=== PATIENT | male | born 1985 | race Caucasian/White ===

== ENCOUNTER 2017-12-31 13:31 | Emergency (ER) | payer SELFPAY ==
[2017-12-31 14:56] VITALS: BP 136/81; PULSE 80; RESP 18; TEMP 98.9; O2SAT 99
--- NOTE | 2017-12-31 18:19 | PD ---
HPI Chief Complaint: Abdominal Pain Time Seen by Provider: 14:56 Travel History International Travel<30 days: No Contact w/Intl Traveler<30days: No Traveled to known affect area: No History of Present Illness HPI Patient is a 32-year-old male presenting to the emergency department with abdominal pain, started 2 days ago. Hx of Crohn's disease. Pt does not want narcotics. Patient reports nausea, vomiting, blood in his stools. He states his been off of his medications for a month. Was on Pent[place]. Symptom onset was sudden, symptom severity is moderate to severe. There are no alleviating factors. He reports his pain is an 8 out of 10. PFSH Past Medical History Gastrointestinal Disorders: Yes (Crohn's disease) Social History Alcohol Use: No Tobacco Use: No Allergies-Medications (Allergen,Severity, Reaction): Coded Allergies: No Known Allergies (Unverified , 12/31/17) Review of Systems Except as stated in HPI: all other systems reviewed are Neg Gastrointestinal: Positive: Nausea, Vomiting, Abdominal Pain, Changes in Bowel Habits Physical Exam Narrative GENERAL: Well-developed, well-nourished, alert male. Presenting in no acute distress. SKIN: Warm and dry. HEAD: Normocephalic. EYES: No scleral icterus. No injection or drainage. NECK: Supple, trachea midline. No JVD or lymphadenopathy. CARDIOVASCULAR: Regular rate RESPIRATORY: No accessory muscle use. Data Data Last Documented VS Vital Signs Date Time Temp Pulse Resp B/P (MAP) Pulse Ox O2 Delivery O2 Flow Rate FiO2 12/31/17 14:56 98.9 80 18 136/81 (99) 99 Orders Orders Complete Blood Count With Diff (12/31/17 14:58) Comprehensive Metabolic Panel (12/31/17 14:58) Lipase (12/31/17 14:58) Prothrombin Time / Inr (Pt) (12/31/17 14:58) Act Partial Throm Time (Ptt) (12/31/17 14:58) MDM Medical Decision Making Medical Screen Exam Complete: Yes Emergency Medical Condition: Yes Interpretation(s) Vital Signs Date Time Temp Pulse Resp B/P (MAP) Pulse Ox O2 Delivery O2 Flow Rate FiO2 12/31/17 14:56 98.9 80 18 136/81 (99) 99 Differential Diagnosis Crohn's disease versus diverticulitis versus abscess versus metabolic abnormality versus other Narrative Course Patient is a 32-year-old male presenting to emergency department for evaluation of abdominal pain. Patient's vital signs are stable, he is awaiting bed placement. Labs and imaging ordered and pending. Patient was called be placed in a bed, is no longer found in the emergency department. Patient left AGAINST MEDICAL ADVICE Diagnosis Primary Impression: Left against medical advice Beatrice Elizabeth Dec 31, 2017 18:19
== END 2018-01-01 01:18 | disposition left against medical advice (07) ==
LOC: NED 13:31
DX: R10.9 Unspecified abdominal pain (principal); K92.1 Melena; R11.2 Nausea with vomiting, unspecified; K50.911 Crohn's disease, unspecified, with rectal bleeding; Z53.20 Procedure and treatment not carried out because of patient's decision for unspecified reasons
CPT/HCPCS: 99281

== ENCOUNTER 2018-03-05 22:57 | Observation (INO) | payer SELFPAY ==
[~2018-03-05] VITALS: Ht 185.4 cm; Wt 75.0 kg
[2018-03-05 23:06] VITALS: BP 154/88; PULSE 115; RESP 18; TEMP 98.4; O2SAT 100
[2018-03-05] MEDS ORDERED: SODIUM CHLOR 0.9% 1000 ML INJ 1,000 ML IV ONE (23:15)
[2018-03-05] MEDS ORDERED: CLON.5 PO (23:16)
[2018-03-05] MEDS ORDERED: PAXI10TA8 PO (23:16)
--- NOTE | 2018-03-05 23:17 | PD ---
HPI Chief Complaint: Suicide Ideation/Attempt Time Seen by Provider: 23:15 Travel History International Travel<30 days: No Contact w/Intl Traveler<30days: No Traveled to known affect area: No History of Present Illness HPI 33-year-old male presents to the emergency department from local detox program/ sober house where he was identified to have intentionally ingested bleach as a suicide attempt. Patient states today for the first time reportedly used crack cocaine around 2 PM. Patient has been depressed and isolated. Patient was moved here from [place] to participate in the detox program. Patient states he has not been participating as he is too depressed. Patient was on antidepressant medications when he lived in [place] before moving to the detox program. 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 Patient had no exacerbation of his Crohn's disease. Patient has chronic diarrhea but denies any mucoid or bloody stools. No nausea or vomiting except for after drinking 2 drinks of bleach she did vomit one time. No shortness of breath or chest pain. Patient states he still feels like he does not want to be here and is depressed. Patient is here voluntarily wanting to get psychiatric help. Patient is not a Sparks act. Patient denies other ingestants. PFSH Past Medical History Narrative Medical Depression, Crohn's disease, substance use; nursing notes reviewed Gastrointestinal Disorders: Yes (Crohn's disease) Tetanus Vaccination: Unknown Influenza Vaccination: No Past Surgical History Surgical History: No Previous Surgery Social History Alcohol Use: No Tobacco Use: Yes Substance Use: No Allergies-Medications (Allergen,Severity, Reaction): Coded Allergies: No Known Allergies (Unverified , 03/05/18) Reported Meds & Prescriptions Reported Meds & Active Scripts Active Reported Klonopin (Clonazepam) 0.5 Mg Tab Unknown Dose PO TID Paxil (Paroxetine HCl) 10 Mg Tab Unknown Dose PO DAILY Review of Systems Except as stated in HPI: all other systems reviewed are Neg General / Constitutional: No: Fever, Chills HENT: No: Congestion Cardiovascular: No: Chest Pain or Discomfort Respiratory: No: Shortness of Breath Gastrointestinal: Positive: Vomiting (x1), No: Nausea, Abdominal Pain, Hematemesis, Hematochezia Genitourinary: No: Dysuria, Flank Pain Musculoskeletal: No: Myalgias, Arthralgias Skin: No Rash Neurologic: No: Weakness, Dizziness, Syncope, Seizures Psychiatric: Positive: Anxiety, Depression, Suicidal Ideations Endocrine: No: Heat Intolerance, Cold Intolerance Hematologic/Lymphatic: No: Easy Bruising Physical Exam Narrative GENERAL: Well-developed well-nourished male no acute distress no respiratory distress; GCS 15; no stridor no hoarseness SKIN: Warm and dry. HEAD: Atraumatic. Normocephalic. EYES: Pupils equal and round. No scleral icterus. No injection or drainage. ENT: No nasal bleeding or discharge. Mucous membranes pink and moist. Mucous membranes moist no ulcerations no edema no angioedema airways patent NECK: Trachea midline. No JVD. CARDIOVASCULAR: Regular rate and rhythm. RESPIRATORY: No accessory muscle use. Clear to auscultation. Breath sounds equal bilaterally. GASTROINTESTINAL: Abdomen soft, non-tender, nondistended. Hepatic and splenic margins not palpable. MUSCULOSKELETAL: Extremities without clubbing, cyanosis, or edema. No obvious deformities. NEUROLOGICAL: Awake and alert. No obvious cranial nerve deficits. Motor grossly within normal limits. Five out of 5 muscle strength in the arms and legs. Normal speech. PSYCHIATRIC: Appropriate mood and affect; insight and judgment normal. Data Data Last Documented VS Vital Signs Date Time Temp Pulse Resp B/P (MAP) Pulse Ox O2 Delivery O2 Flow Rate FiO2 03/06/18 03:00 83 18 121/68 (85) 99 Room Air 03/05/18 23:06 98.4 Orders Orders Complete Blood Count With Diff (03/05/18 23:15) Comprehensive Metabolic Panel (03/05/18 23:15) Thyroid Stimulating Hormone (03/05/18 23:15) Urinalysis - C+S If Indicated (03/05/18 23:15) Electrocardiogram (03/05/18 23:15) Oximetry (03/05/18 23:15) Iv Access Insert/Monitor (03/05/18 23:15) Ecg Monitoring (03/05/18 23:15) Psych Screen (03/05/18 23:15) Drug Screen, Random Urine (03/05/18 23:15) Alcohol (Ethanol) (03/05/18 23:15) Salicylates (Aspirin) (03/05/18 23:15) Tylenol (Acetaminophen) (03/05/18 23:15) Sodium Chlor 0.9% 1000 Ml Inj (Ns 1000 M (03/05/18 23:15) Magnesium (Mg) (03/05/18 23:15) Chest, Single Ap (03/05/18 ) Call Poison Control (03/05/18 23:15) Sodium Chlorid 0.9% 500 Ml Inj (Ns 500 M (03/06/18 02:00) Blood Culture (03/06/18 01:47) Lactic Acid (03/06/18 01:47) Ketorolac Inj (Toradol Inj) (03/06/18 03:00) Admit Order (Ed Use Only) (03/06/18 ) [place] [employer] Guide / Telemetry [email or web address].[id number] (03/06/18 05:06) Diet Heart Healthy (03/06/18 Breakfast) Activity Oob With Assistance (03/06/18 05:06) Notify Dr: Other (03/06/18 05:06) Labs Laboratory Tests Test 03/05/18 23:20 03/06/18 02:55 03/06/18 03:00 White Blood Count 20.2 TH/MM3 Red Blood Count 4.75 MIL/MM3 Hemoglobin 14.8 GM/DL Hematocrit 43.6 % Mean Corpuscular Volume 91.7 FL Mean Corpuscular Hemoglobin 31.2 PG Mean Corpuscular Hemoglobin Concent 34.0 % Red Cell Distribution Width 12.5 % Platelet Count 213 TH/MM3 Mean Platelet Volume 7.5 FL Neutrophils (%) (Auto) 86.5 % Lymphocytes (%) (Auto) 5.6 % Monocytes (%) (Auto) 7.7 % Eosinophils (%) (Auto) 0.1 % Basophils (%) (Auto) 0.1 % Neutrophils # (Auto) 17.5 TH/MM3 Lymphocytes # (Auto) 1.1 TH/MM3 Monocytes # (Auto) 1.5 TH/MM3 Eosinophils # (Auto) 0.0 TH/MM3 Basophils # (Auto) 0.0 TH/MM3 CBC Comment DIFF FINAL Differential Comment Blood Urea Nitrogen 16 MG/DL Creatinine 1.28 MG/DL Random Glucose 117 MG/DL Total Protein 7.7 GM/DL Albumin 4.7 GM/DL Calcium Level 9.5 MG/DL Magnesium Level 2.0 MG/DL Alkaline Phosphatase 80 U/L Aspartate Amino Transf (AST/SGOT) 182 U/L Alanine Aminotransferase (ALT/SGPT) 73 U/L Total Bilirubin 0.7 MG/DL Sodium Level 144 MEQ/L Potassium Level 4.5 MEQ/L Chloride Level 105 MEQ/L Carbon Dioxide Level 28.3 MEQ/L Anion Gap 11 MEQ/L Estimat Glomerular Filtration Rate 64 ML/MIN Thyroid Stimulating Hormone 3rd Gen 1.790 uIU/ML Salicylates Level 2.2 MG/DL Acetaminophen Level LESS THAN 2.0 MCG/ML Ethyl Alcohol Level LESS THAN 3 MG/DL Urine Color YELLOW Urine Turbidity CLEAR Urine pH 5.5 Urine Specific [place] 1.015 Urine Protein TRACE mg/dL Urine Glucose (UA) NEG mg/dL Urine Ketones NEG mg/dL Urine Occult Blood SMALL Urine Nitrite NEG Urine Bilirubin NEG Urine Urobilinogen 2.0 MG/DL Urine Leukocyte Esterase NEG Urine WBC LESS THAN 1 /hpf Urine Squamous Epithelial Cells <1 /hpf Urine Hyaline Casts 11 /lpf Urine Granular Casts 11 /lpf Urine Mucus FEW /lpf Microscopic Urinalysis Comment CULT NOT INDICATED Urine Opiates Screen NEG Urine Barbiturates Screen NEG Urine Amphetamines Screen NEG Urine Benzodiazepines Screen NEG Urine Cocaine Screen POS Urine Cannabinoids Screen NEG Lactic Acid Level 0.8 mmol/L MDM Medical Decision Making Medical Screen Exam Complete: Yes Emergency Medical Condition: Yes Medical Record Reviewed: Yes Interpretation(s) EKG normal sinus rhythm rate 67 left axis deviation no acute ST elevation or injury pattern change nonspecific ST-T changes some flattening noted V3 through V6 Last Impressions Chest X-Ray 03/05/18 0000 Signed Impressions: CONCLUSION: No acute cardiopulmonary process. CBC & BMP Diagram 03/05/18 23:20 Total Protein 7.7, Albumin 4.7, Calcium Level 9.5, Magnesium Level 2.0, Alkaline Phosphatase 80, Aspartate Amino Transf (AST/SGOT) 182 H, Alanine Aminotransferase (ALT/SGPT) 73, Total Bilirubin 0.7 Vital Signs Date Time Temp Pulse Resp B/P (MAP) Pulse Ox O2 Delivery O2 Flow Rate FiO2 03/06/18 03:00 83 18 121/68 (85) 99 Room Air 03/05/18 23:06 98.4 115 18 154/88 (110) 100 Urine drug screen: Positive for cocaine Serum alcohol less than 3, not elevated Serum acetaminophen/salicylate levels are not elevated Differential Diagnosis Depression, suicidal ideation, bleach ingestion, polysubstance ingestion Narrative Course Patient placed on monitor IV access obtained specimens collected and sent for resulting chest x-ray ordered EKG ordered patient given liter of normal saline call placed to poison At 3:15 AM patient has refused CT abdomen and pelvis; based on available physical exam and lab values no clear source for leukocytosis of 20,000 although may be related to stress demargination and dehydration. Patient at this time will be admitted as observation to the medicine service for repeat white cell count and lab values and then will be medically cleared for psych admission for depression and suicidal behavior. Psych screening can be performed at this time. It is 5 AM patient is unable to be medically cleared due to leukocytosis with tachycardia meets SIRS criterion no obvious source of infection most likely reflects tachycardia for cocaine use and possible stress demargination and dehydration precipitating leukocytosis. Patient again interviewed and remains depressed and again remains suicidal. Patient does present voluntarily but will make patient Sparks act as suicidal ideation with recent depression reports he is lost his family his job and purpose. Diagnosis Primary Impression: Depression Additional Impressions: Suicidal ideation Leukocytosis History of Crohn's disease Cocaine abuse Patricia Nunn MD March 05, 2018 23:16
[2018-03-05 23:42] LABS: AUTOMATED NEUTROPHIL # 17.5 TH/MM3 (1.8-7.7); BASOPHIL % 0.1 % (0.0-2.0); EOSINOPHIL % 0.1 % (0.0-4.0); HEMATOCRIT 43.6 % (39.0-51.0); HEMOGLOBIN 14.8 GM/DL (13.0-17.0); LYMPH % 5.6 % (9.0-44.0); LYMPHOCYTE # 1.1 TH/MM3 (1.0-4.8); MEAN CELL VOLUME 91.7 FL (80.0-100.0); MEAN CORPUSCULAR HEMOGLOBIN 31.2 PG (27.0-34.0); MEAN PLATELET VOLUME 7.5 FL (7.0-11.0); MONO % 7.7 % (0.0-8.0); MONOCYTE # 1.5 TH/MM3 (0-0.9); NEUT % 86.5 % (16.0-70.0); PLATELET COUNT 213 TH/MM3 (150-450); RED BLOOD COUNT 4.75 MIL/MM3 (4.50-5.90); RED CELL DISTRIBUTION WIDTH 12.5 % (11.6-17.2); WHITE BLOOD COUNT 20.2 TH/MM3 (4.0-11.0)
[2018-03-06] VITALS (11 sets, daily range): BP systolic 107–121; BP diastolic 55–68; PULSE 72–94; RESP 16–20; TEMP 97.2; O2SAT 98–99
--- NOTE | 2018-03-06 00:06 | RADRPT ---
EXAM DATE: 03/06/2018 12:00 AM EDT AGE/SEX: 33 years / Male INDICATIONS: Vomiting. CLINICAL DATA: This is the patient's initial encounter. Patient reports that signs and symptoms have been present for 1 day and indicates a pain score of 1/10. MEDICAL/SURGICAL HISTORY: Crohn's disease. None. COMPARISON: No prior [facility] exams available for comparison. FINDINGS: A single AP view of the chest demonstrates the lungs to be symmetrically aerated without evidence of soft tissue mass, infiltrate or effusion. There is a suspected calcified granuloma in the right upper lung. The cardiomediastinal contours are unremarkable. Osseous structures are intact. CONCLUSION: No acute cardiopulmonary process. Electronically signed by: Gerard Larson MD 03/06/2018 12:04 AM EDT
[2018-03-06 00:09] LABS: ALBUMIN 4.7 GM/DL (3.4-5.0); AST (GOT) 182 U/L (15-37); BICARBONATE 28.3 MEQ/L (21.0-32.0); BLOOD UREA NITROGEN 16 MG/DL (7-18); CALCIUM 9.5 MG/DL (8.5-10.1); CHLORIDE 105 MEQ/L (98-107); CREATININE 1.28 MG/DL (0.60-1.30); GLOMERULAR FILTRATION RATE 64 ML/MIN (>89); GLUCOSE,RANDOM 117 MG/DL (74-106); SODIUM (NA) 144 MEQ/L (136-145)
[2018-03-06 00:17] LABS: ALKALINE PHOSPHATASE 80 U/L (45-117); ALT (GPT) 73 U/L (12-78); TOTAL BILIRUBIN ADULT 0.7 MG/DL (0.2-1.0); TOTAL PROTEIN 7.7 GM/DL (6.4-8.2)
[2018-03-06 00:19] LABS: ACETAMINOPHEN LESS THAN 2.0 MCG/ML (10.0-30.0)
[2018-03-06] MEDS ORDERED: SODIUM CHLORID 0.9% 500 ML INJ 500 ML IV ONE (02:00)
[2018-03-06] MEDS ORDERED: KETOROLAC TROMETHAMINE 30 MG/ML (IVP) VIAL IV PUSH ONE (03:00)
[2018-03-06 03:22] LABS: BILIRUBIN, URINE NEG (NEG); BLOOD, URINE SMALL (NEG); GLUCOSE,URINE NEG (NEG); HYALINE CAST, URINE 11 /lpf (RARE); KETONE, URINE NEG (NEG); MUCUS URINE FEW /lpf (OCC); NITRITE,URINE NEG (NEG); PH, URINE 5.5 (5.0-8.5); SQUAMOUS EPITHELIAL CELL URINE <1 /hpf (0-5); URINE COLOR YELLOW (YELLW/STRAW); URINE LEUKOCYTE ESTERASE NEG (NEG)
[2018-03-06] MEDS ORDERED: BISACODYL 10 MG SUPP RECTAL PRN (05:30)
[2018-03-06] MEDS ORDERED: MAGNESIUM HYDROXIDE SUSP 30 ML CUP PO PRN (05:30)
[2018-03-06] MEDS ORDERED: ACETAMINOPHEN 325 MG TAB PO PRN (05:30)
[2018-03-06] MEDS ORDERED: SODIUM CHLORIDE 0.9% FLUSH 10 ML FLUSH IV FLUSH PRN (05:30)
[2018-03-06] MEDS ORDERED: SENNOSIDES 8.6 MG TAB PO PRN (05:30)
[2018-03-06] MEDS ORDERED: LACTULOSE SYRUP 20 GM/30 ML CUP PO PRN (05:30)
[2018-03-06] MEDS ORDERED: NALOXONE HCL 0.4 MG/ML AMP IV PUSH PRN (05:30)
[2018-03-06 07:41] LABS: AUTOMATED NEUTROPHIL # 7.8 TH/MM3 (1.8-7.7); BASOPHIL # 0.1 TH/MM3 (0-0.2); BASOPHIL % 0.5 % (0.0-2.0); EOSINOPHIL # 0.2 TH/MM3 (0-0.4); EOSINOPHIL % 1.7 % (0.0-4.0); HEMATOCRIT 39.5 % (39.0-51.0); HEMOGLOBIN 13.4 GM/DL (13.0-17.0); LYMPH % 20.3 % (9.0-44.0); LYMPHOCYTE # 2.3 TH/MM3 (1.0-4.8); MEAN CELL VOLUME 92.4 FL (80.0-100.0); MEAN CORPUSCULAR HEMOGLOBIN 31.3 PG (27.0-34.0); MEAN CORPUSCULAR HGB CONC 33.9 % (32.0-36.0); MEAN PLATELET VOLUME 7.4 FL (7.0-11.0); MONO % 8.9 % (0.0-8.0); NEUT % 68.6 % (16.0-70.0); PLATELET COUNT 158 TH/MM3 (150-450); RED BLOOD COUNT 4.27 MIL/MM3 (4.50-5.90); RED CELL DISTRIBUTION WIDTH 12.8 % (11.6-17.2); WHITE BLOOD COUNT 11.3 TH/MM3 (4.0-11.0)
[2018-03-06] MEDS ORDERED: SODIUM CHLORIDE 0.9% FLUSH 10 ML FLUSH IV FLUSH SCH (09:00)
[2018-03-06] MEDS ORDERED: SODIUM CHLOR 0.9% 1000 ML INJ 1,000 ML IV SCH (09:15)
--- NOTE | 2018-03-06 09:15 | HHI.HP ---
HPI Service [facility] Primary Care Physician No Primary Care Physician Admission Diagnosis Leukocytosis; sirs; suicidal ideation/depression Diagnoses: Chief Complaint: suicidal attempt Travel History International Travel<30 Days: No Contact w/Intl Traveler <30 Da: No Traveled to Known Affected Are: No History of Present Illness 33-year-old male presents to the emergency department from local detox program/ sober house where he was identified to have intentionally ingested bleach as a suicide attempt. Patient states today for the first time reportedly used crack cocaine around 2 PM. Patient has been depressed and isolated. Patient was moved here from [place] to participate in the detox program. Patient states he has not been participating as he is too depressed. Patient was on antidepressant medications when he lived in [place] before moving to the detox program. 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 Patient had no exacerbation of his Crohn's disease. Patient has chronic diarrhea but denies any mucoid or bloody stools. No nausea or vomiting except for after drinking 2 drinks of bleach she did vomit one time. No shortness of breath or chest pain. Patient states he still feels like he does not want to be here and is depressed. Patient is here voluntarily wanting to get psychiatric help. Patient is not a Sparks act. Patient denies other ingestants. Review of Systems Except as stated in HPI: all other systems reviewed are Neg Past Family Social History Past Medical History Depression, Crohn's disease, substance use; nursing notes reviewed Past Surgical History No Previous Surgery Reported Medications Reported Meds & Active Scripts Active Reported Klonopin (Clonazepam) 0.5 Mg Tab Unknown Dose PO TID Paxil (Paroxetine HCl) 10 Mg Tab Unknown Dose PO DAILY Allergies: Coded Allergies: No Known Allergies (Unverified , 03/05/18) Family History Healthy family Social History Alcohol Use: No Tobacco Use: Yes Substance Use: Positive screen for cocaine Physical Exam Vital Signs Vital Signs Date Time Temp Pulse Resp B/P (MAP) Pulse Ox O2 Delivery O2 Flow Rate FiO2 03/06/18 08:10 97.2 81 16 110/67 (81) 99 03/06/18 07:30 72 16 115/64 (81) 98 Room Air 03/06/18 07:00 76 17 115/64 (81) 98 Room Air 03/06/18 06:00 82 18 107/58 (74) 98 Room Air 03/06/18 05:00 78 19 112/56 (74) 99 Room Air 03/06/18 04:00 78 18 110/57 (74) 99 Room Air 03/06/18 03:00 83 18 121/68 (85) 99 Room Air 03/06/18 02:00 82 20 111/57 (75) 99 Room Air 03/06/18 01:00 86 18 110/55 (73) 99 Room Air 03/06/18 00:00 94 19 118/66 (83) 99 Room Air 03/05/18 23:06 98.4 115 18 154/88 (110) 100 Physical Exam GENERAL: This is a well-nourished, well-developed patient, in no apparent distress. SKIN: No rashes, ecchymoses or lesions. Cool and dry. HEAD: Atraumatic. Normocephalic. No temporal or scalp tenderness. EYES: Pupils equal round and reactive. Extraocular motions intact. No scleral icterus. No injection or drainage. ENT: Nose without bleeding, purulent drainage or septal hematoma. Throat without erythema, tonsillar hypertrophy or exudate. Uvula midline. Airway patent. NECK: Trachea midline. No JVD or lymphadenopathy. Supple, nontender, no meningeal signs. CARDIOVASCULAR: Regular rate and rhythm without murmurs, gallops, or rubs. RESPIRATORY: Clear to auscultation. Breath sounds equal bilaterally. No wheezes , rales, or rhonchi. GASTROINTESTINAL: Abdomen soft, non-tender, nondistended. No hepato-splenomegaly , or palpable masses. No guarding. MUSCULOSKELETAL: Extremities without clubbing, cyanosis, or edema. No joint tenderness, effusion, or edema noted. No calf tenderness. Negative Homans sign bilaterally. NEUROLOGICAL: Awake and alert. Cranial nerves II through XII intact. Motor and sensory grossly within normal limits. Five out of 5 muscle strength in all muscle groups. Normal speech. Laboratory Laboratory Tests Test 03/05/18 23:20 03/06/18 02:55 03/06/18 03:00 03/06/18 07:26 White Blood Count 20.2 11.3 Red Blood Count 4.75 4.27 Hemoglobin 14.8 13.4 Hematocrit 43.6 39.5 Mean Corpuscular Volume 91.7 92.4 Mean Corpuscular Hemoglobin 31.2 31.3 Mean Corpuscular Hemoglobin Concent 34.0 33.9 Red Cell Distribution Width 12.5 12.8 Platelet Count 213 158 Mean Platelet Volume 7.5 7.4 Neutrophils (%) (Auto) 86.5 68.6 Lymphocytes (%) (Auto) 5.6 20.3 Monocytes (%) (Auto) 7.7 8.9 Eosinophils (%) (Auto) 0.1 1.7 Basophils (%) (Auto) 0.1 0.5 Neutrophils # (Auto) 17.5 7.8 Lymphocytes # (Auto) 1.1 2.3 Monocytes # (Auto) 1.5 1.0 Eosinophils # (Auto) 0.0 0.2 Basophils # (Auto) 0.0 0.1 CBC Comment DIFF FINAL DIFF FINAL Differential Comment Blood Urea Nitrogen 16 Creatinine 1.28 Random Glucose 117 Total Protein 7.7 Albumin 4.7 Calcium Level 9.5 Magnesium Level 2.0 Alkaline Phosphatase 80 Aspartate Amino Transf (AST/SGOT) 182 Alanine Aminotransferase (ALT/SGPT) 73 Total Bilirubin 0.7 Sodium Level 144 Potassium Level 4.5 Chloride Level 105 Carbon Dioxide Level 28.3 Anion Gap 11 Estimat Glomerular Filtration Rate 64 Thyroid Stimulating Hormone 3rd Gen 1.790 Salicylates Level 2.2 Acetaminophen Level LESS THAN 2.0 Ethyl Alcohol Level LESS THAN 3 Urine Color YELLOW Urine Turbidity CLEAR Urine pH 5.5 Urine Specific [place] 1.015 Urine Protein TRACE Urine Glucose (UA) NEG Urine Ketones NEG Urine Occult Blood SMALL Urine Nitrite NEG Urine Bilirubin NEG Urine Urobilinogen 2.0 Urine Leukocyte Esterase NEG Urine WBC LESS THAN 1 Urine Squamous Epithelial Cells <1 Urine Hyaline Casts 11 Urine Granular Casts 11 Urine Mucus FEW Microscopic Urinalysis Comment CULT NOT INDICATED Urine Opiates Screen NEG Urine Barbiturates Screen NEG Urine Amphetamines Screen NEG Urine Benzodiazepines Screen NEG Urine Cocaine Screen POS Urine Cannabinoids Screen NEG Lactic Acid Level 0.8 Date/Time Source Procedure Growth Status 03/06/18 03:05 Blood Peripheral Aerobic Blood Culture Pending Received 03/06/18 03:05 Blood Peripheral Anaerobic Blood Culture Pending Received Result Diagram: 03/06/18 0726 03/05/18 2320 Imaging Last Impressions Chest X-Ray 03/05/18 0000 Signed Impressions: CONCLUSION: No acute cardiopulmonary process. Caprini VTE Risk Assessment Caprini VTE Risk Assessment: No/Low Risk (score <= 1) Caprini Risk Assessment Model Point Value = 1 Point Value = 2 Point Value = 3 Point Value = 5 Age 41-60 Minor surgery BMI > 25 kg/m2 Swollen legs Varicose veins or History of unexplained or recurrent spontaneous Oral contraceptives or hormone replacement Sepsis (< 1 month) Serious lung disease, including pneumonia (< 1 month) Abnormal pulmonary function Acute myocardial infarction Congestive heart failure (< 1 month) History of inflammatory bowel disease Medical patient at bed rest Age 61-74 Arthroscopic surgery Major open surgery (> 45 min) Laparoscopic surgery (> 45 min) Malignancy Confined to bed (> 72 hours) Immobilizing plaster cast Central venous access Age >= 75 History of VTE Family history of VTE Factor V Leiden Prothrombin [id number] Lupus anticoagulant Anticardiolipin antibodies Elevated serum homocysteine Heparin-induced thrombocytopenia Other congenital or acquired thrombophilia Stroke (< 1 month) Elective arthroplasty Hip, pelvis, or leg fracture Acute spinal cord injury (< 1 month) Prophylaxis Regimen Total Risk Factor Score Risk Level Prophylaxis Regimen 0-1 Low Early ambulation 2 Moderate Order ONE of the following: *Sequential Compression Device (SCD) *Heparin 5000 units SQ BID 3-4 Higher Order ONE of the following medications: *Heparin 5000 units SQ TID *Enoxaparin/Lovenox 40 mg SQ daily (WT < 150 kg, CrCl > 30 mL/min) *Enoxaparin/Lovenox 30 mg SQ daily (WT < 150 kg, CrCl > 10-29 mL/min) *Enoxaparin/Lovenox 30 mg SQ BID (WT < 150 kg, CrCl > 30 mL/min) AND/OR *Sequential Compression Device (SCD) 5 or more Highest Order ONE of the following medications: *Heparin 5000 units SQ TID (Preferred with Epidurals) *Enoxaparin/Lovenox 40 mg SQ daily (WT < 150 kg, CrCl > 30 mL/min) *Enoxaparin/Lovenox 30 mg SQ daily (WT < 150 kg, CrCl > 10-29 mL/min) *Enoxaparin/Lovenox 30 mg SQ BID (WT < 150 kg, CrCl > 30 mL/min) AND *Sequential Compression Device (SCD) Assessment and Plan Assessment and Plan Depression Suicidal ideation and attempt with bleach ingestion Leukocytosis History of Crohn's disease, not in exacerbation at this time. Stable. Cocaine abuse leukocytosis with tachycardia meets SIRS criteria no obvious source of infection most likely reflects tachycardia for cocaine use and possible stress and dehydration precipitating leukocytosis. However repeat labs WBC improved significantly. Patient again interviewed and remains depressed and again remains suicidal. Patient does present voluntarily but will make patient Sparks act as suicidal ideation with recent depression reports he is lost his family his job and purpose. EKG normal sinus rhythm rate 67 left axis deviation no acute ST elevation or injury pattern change nonspecific ST-T changes some flattening noted V3 through V6 On IVF Sitter at bedside Psych consulted , meets psych criteria Discharge plan: Cleared medically DC to med psych Cleared medically to DC to med psych Dr Juve hernandez has seen the patient Meds per med reconciliations Activity ad dieter as paevl Diet regular diet as tolerated DC in medically stable condition to med psych , to follow up with PC[facility] and consultants as need. Discussed Condition With pt, nurse Joann Montaño MD March 06, 2018 09:15
--- NOTE | 2018-03-06 11:52 | PD.PSY.CON ---
Provisional Diagnosis Admission Date March 06, 2018 at 05:09 Holden I. Adjustment disorder with depressed mood vs substance-induced mood disorder vs major depressive disorder, recurrent, cocaine and opiates use disorder Holden II. 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 Crohn's disease, intoxication with bleach and cocaine Holden IV. Multiple psychiatric admissions, multiple suicide attempt Holden V. 45 History of Present Illness Service Psychiatry Consult Requested By ER team Reason for Consult Suicidal attempt Primary Care Physician No Primary Care Physician HPI The patient is 33-year-old man, domiciled in a sober house in [facility], he is originally from [place], he is , unemployed, father of 2 kids , with a significant psychiatric history for drug-induced psychosis, depression , anxiety, over 10 hospitalizations, multiple suicidal attempts, he is not a psychotropics, cocaine and opiates use disorder, medical history of Crohn's disease, who presents to the emergency department from local detox program/ sober house where he was identified to have intentionally ingested bleach as a suicide attempt. Patient states yesterday for the first time reportedly used crack cocaine around 2 PM. Patient has been depressed and isolated. Patient was moved here from [place] to participate in the detox program. Patient states he has not been participating as he is too depressed. Patient was on antidepressant medications when he lived in [place] before moving to the detox program. 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 Patient had no exacerbation of his Crohn's disease. Patient has chronic diarrhea but denies any mucoid or bloody stools. No nausea or vomiting except for after drinking 2 drinks of bleach she did vomit one time. No shortness of breath or chest pain. Patient states he still feels like he does not want to be here and is depressed. Patient is here voluntarily wanting to get psychiatric help. Patient is not a Sparks act. Patient was admitted in observation due to leukocytosis with tachycardia meets SIRS criteria no obvious source of infection most likely reflects tachycardia for cocaine use and possible stress and dehydration precipitating leukocytosis. However repeat labs WBC improved significantly. EKG normal sinus rhythm rate 67 left axis deviation no acute ST elevation or injury pattern change nonspecific ST-T changes some flattening noted V3 through V6. Consulted to psychiatry to address depression. EMR reviewed. Case discussed with Dr. Montaño directly. On psychiatric evaluation the patient is calm, cooperative. The patient reports that he has a long history of depression, he has been in a sober house for over 2 months, he has not been taking his medications, and he has been increasingly depressed. Yesterday, after multiple months, relapsed in cocaine and he felt so guilty that he decided to overdose with bleach. Patient reports that being far from his family, unemployed, facing his drug addiction day by day, making quite depressed. Patient reports that he has been feeling very guilty, irritable, with poor tolerance to frustration, hopeless, helpless, with increased sense of rejection, emptiness, persistent suicidal thoughts. The patient reports suicidal ideation, no specific plan at the moment. Is willing to be admitted in psychiatry and restarting his medications. He says that in the past he has being in Seroquel and Klonopin and other medications. Patient is oriented 3, no fluctuation of consciousness, no attention deficit gross cognitive impairment present. He is logical, coherent and relevant. No paranoia, no ideas of reference, no loosening of associations, no delusions are present. He is not agitated or aggressive. He reports that the reason he is in a sober house for treatment of opiate abuse, he has been in early sustained remission for about 2 months now, he used cocaine in the past, has been also sober until yesterday. Review of Systems Constitutional: DENIES: Diaphoretic episodes, Fatigue, Fever, Weight gain, Weight loss, Chills, Dizziness, Change in appetite, Night Sweats Endocrine: DENIES: Heat/cold intolerance, Polydipsia, Polyuria, Polyphagia Eyes: DENIES: Blurred vision, Diplopia, Eye inflammation, Eye pain, Vision loss , Photosensitivity, Double Vision Ears, nose, mouth, throat: DENIES: Tinnitus, Hearing loss, Vertigo, Nasal discharge, Oral lesions, Throat pain, Hoarseness, Ear Pain, Running Nose, Epistaxis, Sinus Pain, Toothache, Odynophagia Respiratory: DENIES: Apneas, Cough, Snoring, Wheezing, Hemoptysis, Sputum production, Shortness of breath Cardiovascular: DENIES: Chest pain, Palpitations, Syncope, Dyspnea on Exertion , PND, Lower Extremity Edema, Orthopnea, Claudication Gastrointestinal: DENIES: Abdominal pain, Black stools, Bloody stools, Constipation, Diarrhea, Nausea, Vomiting, Difficulty Swallowing, Anorexia Genitourinary: DENIES: Sexual dysfunction, Urinary frequency, Urinary incontinence, Urgency, Hematuria, Dysuria, Nocturia, Penile Discharge, Testicular Pain, Testicular Swelling Musculoskeletal: DENIES: Joint pain, Muscle aches, Stiffness, Joint Swelling, Back pain, Neck pain Integumentary: DENIES: Abnormal pigmentation, Nail changes, Pruritus, Rash Hematologic/lymphatic: DENIES: Bruising, Lymphadenopathy Immunologic/allergic: DENIES: Eczema, Urticaria Neurologic: DENIES: Abnormal gait, Headache, Localized weakness, Paresthesias, Seizures, Speech Problems, Tremor, Poor Balance Psychiatric: COMPLAINS OF: Depression, Suicidal Ideation, DENIES: Anxiety, Confusion, Mood changes, Hallucinations, Agitation, Homicidal Ideation, Delusions Past Family Social History Coded Allergies: No Known Allergies (Unverified , 03/05/18) Reported Medications Clonazepam (Klonopin) 0.5 Mg Tab, PO TID, #90 TAB 0 Refills 03/05/18 Paroxetine (Paxil) 10 Mg Tab, PO DAILY, #30 TAB 0 Refills 03/05/18 Current Medications Medications (Trade) Dose Ordered Sig/Nithin Route Start Time Stop Time Status Last Admin (NS Flush) 2 ml UNSCH PRN IV FLUSH 03/06/18 05:30 (NS Flush) 2 ml BID IV FLUSH 03/06/18 09:00 03/06/18 08:56 (Tylenol) 650 mg Q4H PRN PO 03/06/18 05:30 (Narcan Inj) 0.4 mg UNSCH PRN IV PUSH 03/06/18 05:30 (Milk Of Magnesia Liq) 30 ml Q12H PRN PO 03/06/18 05:30 (Senokot) 17.2 mg Q12H PRN PO 03/06/18 05:30 (Dulcolax Supp) 10 mg DAILY PRN RECTAL 03/06/18 05:30 (Lactulose Liq) 30 ml DAILY PRN PO 03/06/18 05:30 Sodium Chloride 1,000 ml @ 125 mls/hr Q8H IV 03/06/18 09:15 Family Psych History No family psychiatric history Social History Patient was born and raised in [place], he lives in [place] with his family, is now participating in treatment for opiates and cocaine abuse in a sober house in the [place], unemployed, father of 2 kids, his highest level of education is college Patient's Strengths (min. 2) Patient is in a structure treatment for drugs Physical Exam Patient has no withdrawal symptoms, no tremors, no psychomotor agitation or retardation, no gait disturbance, no catatonic symptoms Vital Signs Vital Signs Date Time Temp Pulse Resp B/P (MAP) Pulse Ox O2 Delivery O2 Flow Rate FiO2 03/06/18 11:29 85 03/06/18 08:10 97.2 16 110/67 (81) 99 03/06/18 07:30 Room Air Lab Results Test 03/05/18 23:20 03/06/18 02:55 03/06/18 03:00 03/06/18 07:26 White Blood Count 20.2 TH/MM3 11.3 TH/MM3 Red Blood Count 4.75 MIL/MM3 4.27 MIL/MM3 Hemoglobin 14.8 GM/DL 13.4 GM/DL Hematocrit 43.6 % 39.5 % Mean Corpuscular Volume 91.7 FL 92.4 FL Mean Corpuscular Hemoglobin 31.2 PG 31.3 PG Mean Corpuscular Hemoglobin Concent 34.0 % 33.9 % Red Cell Distribution Width 12.5 % 12.8 % Platelet Count 213 TH/MM3 158 TH/MM3 Mean Platelet Volume 7.5 FL 7.4 FL Neutrophils (%) (Auto) 86.5 % 68.6 % Lymphocytes (%) (Auto) 5.6 % 20.3 % Monocytes (%) (Auto) 7.7 % 8.9 % Eosinophils (%) (Auto) 0.1 % 1.7 % Basophils (%) (Auto) 0.1 % 0.5 % Neutrophils # (Auto) 17.5 TH/MM3 7.8 TH/MM3 Lymphocytes # (Auto) 1.1 TH/MM3 2.3 TH/MM3 Monocytes # (Auto) 1.5 TH/MM3 1.0 TH/MM3 Eosinophils # (Auto) 0.0 TH/MM3 0.2 TH/MM3 Basophils # (Auto) 0.0 TH/MM3 0.1 TH/MM3 CBC Comment DIFF FINAL DIFF FINAL Differential Comment Blood Urea Nitrogen 16 MG/DL Creatinine 1.28 MG/DL Random Glucose 117 MG/DL Total Protein 7.7 GM/DL Albumin 4.7 GM/DL Calcium Level 9.5 MG/DL Magnesium Level 2.0 MG/DL Alkaline Phosphatase 80 U/L Aspartate Amino Transf (AST/SGOT) 182 U/L Alanine Aminotransferase (ALT/SGPT) 73 U/L Total Bilirubin 0.7 MG/DL Sodium Level 144 MEQ/L Potassium Level 4.5 MEQ/L Chloride Level 105 MEQ/L Carbon Dioxide Level 28.3 MEQ/L Anion Gap 11 MEQ/L Estimat Glomerular Filtration Rate 64 ML/MIN Thyroid Stimulating Hormone 3rd Gen 1.790 uIU/ML Salicylates Level 2.2 MG/DL Acetaminophen Level LESS THAN 2.0 MCG/ML Ethyl Alcohol Level LESS THAN 3 MG/DL Urine Color YELLOW Urine Turbidity CLEAR Urine pH 5.5 Urine Specific [place] 1.015 Urine Protein TRACE mg/dL Urine Glucose (UA) NEG mg/dL Urine Ketones NEG mg/dL Urine Occult Blood SMALL Urine Nitrite NEG Urine Bilirubin NEG Urine Urobilinogen 2.0 MG/DL Urine Leukocyte Esterase NEG Urine WBC LESS THAN 1 /hpf Urine Squamous Epithelial Cells <1 /hpf Urine Hyaline Casts 11 /lpf Urine Granular Casts 11 /lpf Urine Mucus FEW /lpf Microscopic Urinalysis Comment CULT NOT INDICATED Urine Opiates Screen NEG Urine Barbiturates Screen NEG Urine Amphetamines Screen NEG Urine Benzodiazepines Screen NEG Urine Cocaine Screen POS Urine Cannabinoids Screen NEG Lactic Acid Level 0.8 mmol/L Date/Time Source Procedure Growth Status 03/06/18 03:05 Blood Peripheral Aerobic Blood Culture Pending Received 03/06/18 03:05 Blood Peripheral Anaerobic Blood Culture Pending Received Mental Status Examination Appearance: Appropriate Consciousness: Alert Orientation: x4 Motor Activity: Normal gait Speech: Unremarkable Language: Adequate Fund of Knowledge: Adequate Attention and Concentration: Adequate Memory: Unremarkable Mood: Appropriate, Sad Affect: Appropriate, Irritable, Sad Thought Process & Associations: Intact Thought Content: Appropriate Hallucination Type: None Delusion Type: None Suicidal Ideation: Yes Suicidal Plan: No Suicidal Intention: No Homicidal Ideation: No Homicidal Plan: No Homicidal Intention: No Insight: Poor Judgment: Poor Assessment & Plan Problem List: (1) Adjustment disorder with depressed mood ICD Codes: F43.21 - Adjustment disorder with depressed mood Assessment & Plan: Psychiatric evaluation patient is calm, cooperative, he reports ongoing symptomatology of depression in the last 2 months in the context of separation from his family, not taking his psychotropics, feeling overwhelmed and stressed with his participation in a rehabilitation program in a sober house. The patient reports that he has been feeling increasingly guilty , frustrated, with mood swings, poor tolerance to frustration, irritability, low energy, hopeless, helpless, to the point that he relapsed in cocaine yesterday "to feel better" became quite guilty and then try to commit suicide by taking bleach. This is a patient with an extensive history of psychiatric hospitalizations, suicide attempts, self harming behavior, suicide attempts, substance abuse, has not been in treatment for the last 2 months. At the moment of this evaluation the patient seems to be a high risk of danger to himself, he is actively suicidal, he needs to be admitted in psychiatry for stabilization. Will start Wellbutrin 75 mg bid for depression. Unclear at this point if the etiology of the depression that he presents is related with adjustment due to separation with his family and also recent relapse, cocaine use disorder, a primary mood disorder or conscious simulation could also be part of this picture. By taking psychiatric history also based in my observation clinically significant cluster B traits are present, but more longitudinal observation is needed in order to complete a diagnosis in this aspect. Brief supportive psychotherapy of cycle patient provided. Patient will be transferred to psychiatry once medically appropriate. Assessment & Plan Estimated LOS: Wili Adrian MD March 06, 2018 11:52
[2018-03-06] MEDS ORDERED: buPROPion HCL 75 MG TAB PO SCH (12:00)
--- NOTE | 2018-03-06 12:50 | HHI.DCPOC ---
Discharge Care Plan Goals to Promote Your Health * To prevent worsening of your condition and complications * To maintain your health at the optimal level Directions to Meet Your Goals Take your medications as prescribed Follow your dietary instruction Follow activity as directed Keep your appointments as scheduled Take your immunizations and boosters as scheduled If your symptoms worsen call your PCP, if no PCP go to Urgent Care Center or Emergency Room Smoking is Dangerous to Your Health. Avoid second hand smoke Call the 24-hour hour crisis hotline for domestic abuse at Joann Montaño MD March 06, 2018 12:50
[2018-03-06] MEDS ORDERED: ACETAMINOPHEN/HYDROcodone 325 MG/5 MG TAB PO ONE (13:00)
--- NOTE | 2018-03-06 18:02 | EKG ---
Date Performed: 03/06/2018 Time Performed: 00:55:05 PTAGE: 33 years EKG: Sinus rhythm POSSIBLE RIGHT VENTRICULAR CONDUCTION DELAY ST ELEVATION, PROBABLY EARLY REPOLARIZATION MODERATE ST DEPRESSION ABNORMAL ECG INTERPRETATION BASED ON A DEFAULT AGE OF 39 YEARS NO PREVIOUS TRACING DOCTOR: Tarsha Azar Interpretating Date/Time 03/06/2018 17:58:27
== END 2018-03-06 16:35 ==
LOC: NEPC 22:57 → NEDA 03-06 05:09 → NEDH 03-06 07:32
PROVIDERS: ADMIT Hospitalist; ATTEND Hospitalist
DX: T54.92XA Toxic effect of unspecified corrosive substance, intentional self-harm, initial encounter (principal); Z81.8 Family history of other mental and behavioral disorders; F43.21 Adjustment disorder with depressed mood; K50.90 Crohn's disease, unspecified, without complications; F11.20 Opioid dependence, uncomplicated; F17.210 Nicotine dependence, cigarettes, uncomplicated; Z79.899 Other long term (current) drug therapy; D72.829 Elevated white blood cell count, unspecified; F14.10 Cocaine abuse, uncomplicated; R00.0 Tachycardia, unspecified; J84.10 Pulmonary fibrosis, unspecified; R94.31 Abnormal electrocardiogram [ECG] [EKG]; F19.959 Other psychoactive substance use, unspecified with psychoactive substance-induced psychotic disorder, unspecified; R65.10 Systemic inflammatory response syndrome (SIRS) of non-infectious origin without acute organ dysfunction
CPT/HCPCS: 71045; 80053; 80307; 81001; 83605; 83735; 84443; 85025; 87040; 93005; 96361; 96374; 99285; G0378; J1885; J7030; J7040

== ENCOUNTER 2018-03-06 16:30 | Inpatient (IN) | payer SELFPAY ==
[~2018-03-06] VITALS: Ht 185.4 cm; Wt 75.0 kg
[~2018-03-06 16:30] MED LIST: CLON.5 PO; PAXI10TA8 PO
[2018-03-06] MEDS ORDERED: ALUMINUM/MAGNESIUM/SIMETH 30 ML CUP PO PRN (17:00)
[2018-03-06] MEDS ORDERED: LORazepam 0.5 MG TAB PO PRN (17:00)
[2018-03-06] MEDS ORDERED: LORazepam 2 MG/ML VIAL IM PRN ×2 (17:00)
[2018-03-06] MEDS ORDERED: LORazepam 1 MG TAB PO PRN (17:00)
[2018-03-06] MEDS: NICOTINE 21 MG/24 HR PATCH T-DERMAL SCH (17:00)
[2018-03-06] MEDS ORDERED: ACETAMINOPHEN 325 MG TAB PO PRN (17:00)
[2018-03-06] MEDS ORDERED: MAGNESIUM HYDROXIDE SUSP 30 ML CUP PO PRN (17:00)
[2018-03-06 17:28] VITALS: BP 134/61; PULSE 93; RESP 16; TEMP 98.1; O2SAT 98
[2018-03-06] MEDS ORDERED: buPROPion HCL 75 MG TAB PO SCH (21:00)
[2018-03-07 06:19] VITALS: BP 108/64; PULSE 87; RESP 18; TEMP 97.8; O2SAT 98
[2018-03-07] MEDS: NICOTINE 21 MG/24 HR PATCH T-DERMAL SCH (09:00)
[2018-03-07] MEDS: REMOVE OLD PATCH T-DERMAL SCH (09:00)
--- NOTE | 2018-03-07 11:27 | HHI.PYPN ---
Subjective Remarks Chart reviewed and discussed with nursing staff. Patient is in his bed. He states that he came from [place] where he was under treatment. He was living in a Sober House. He has long history of IBS and Crohn's Disease. He states that the only medication that ever worked for him was Cymbalta ( 120 mg daily). He endorses racing thoughts and nightmares. He is cooperative and asking for care. He refused labs this morning, states " I had labs in the ED, I don't want to be stuck again. " Mental Status Examination Appearance: Appropriate Consciousness: Alert Motor Activity: Normal gait Speech: Unremarkable Language: Adequate Fund of Knowledge: Adequate Memory: Unremarkable Mood: Sad Affect: Flat, Blunt Thought Content: Racing thoughts Hallucination Type: None Delusion Type: None Suicidal Ideation: No Suicidal Plan: No Suicidal Intention: No Homicidal Ideation: No Homicidal Plan: No Homicidal Intention: No Insight: Adequate Judgment: Adequate Results Vitals/IOs Vital Signs Date Time Temp Pulse Resp B/P (MAP) Pulse Ox O2 Delivery O2 Flow Rate FiO2 03/07/18 06:19 97.8 87 18 108/64 (79) 98 Assessment & Plan Problem List: (1) Adjustment disorder with depressed mood ICD Codes: F43.21 - Adjustment disorder with depressed mood Assessment & Plan Patient is quiet and keeps to himself. He states that he has IBS and Crohn's disease. He is cooperative and participates in his care. He Estimated LOS: days Justification for Cont. Inpt. Moving patient to a lower level of care may result in his decompensation. Luz Marina Henriquez March 07, 2018 11:27
[2018-03-07 18:31] VITALS: BP 104/56; PULSE 74; RESP 17; TEMP 98.1; O2SAT 100
[2018-03-08 06:40] VITALS: BP 90/56; PULSE 82; RESP 18; TEMP 97.8; O2SAT 100
[2018-03-08] MEDS: NICOTINE 21 MG/24 HR PATCH T-DERMAL SCH (09:00)
[2018-03-08] MEDS: REMOVE OLD PATCH T-DERMAL SCH (09:00)
--- NOTE | 2018-03-08 13:49 | HHI.HP ---
Provisional Diagnosis Admission Date March 06, 2018 at 16:38 [place] I. Adjustment disorder with depressed mood vs substance-induced mood disorder vs major depressive disorder, cocaine and opiates use disorder, r/o malignant [place] II. Unspecified personality disorder, cluster B trait Certification of Person's Competence To Provide Express and Informed Consent I have personally examined Gm Bob , a person being served at [facility] on, March 08, 2018 13:38. Express and informed consent means consent voluntarily given in writing, by a competent person, after sufficient explanation and disclosure of the subject matter involved to enable the person to make a knowing and willful decision without any element of force, fraud, deceit, duress, or other form of constraint or coercion. This person is 18 years of age or older, is not now known to be incompetent to consent to treatment with a guardian advocate, and does not have a health care surrogate or proxy currently making medical treatment decisions. I have found this person to be one of the following: [x] Competent to provide express and informed consent, as defined above, for voluntary admission to this facility and is competent to provide express and informed consent for treatment. He/she has the consistent capacity to make well reasoned, willful, and knowing decisions concerning his or her medical or mental health treatment. The person fully and consistently understands the purpose of the admission for examination/placement and is fully capable of personally exercising all rights assured under [place] Incompetent to provide express and informed consent to voluntary admission, and this is incompetent to provide express and informed consent to treatment. The person must be transferred to involuntary status and a petition for a guardian advocate filed with the Circuit Court. [] Refusing to provide express and informed consent to voluntary admission but is competent to provide express and informed consent for treatment. The person must be discharged or transferred to involuntary status. Form shall be completed within 24 hours of a person's arrival at the receiving facility and filed in the clinical record of each person: 1. Admitted on a voluntary basis 2. Permitted to provide express and informed consent to his/her own treatment 3. Allowed to transfer from involuntary to voluntary status 4. Prior to permitting a person to consent to his or her own treatment after having been previously found incompetent to consent to treatment. History of Present Illness Capacity: Has Capacity HPI 03/07/2018 The patient is 33-year-old man, domiciled in a sober house in [facility], he is originally from [place], he is , unemployed, father of 2 kids, with a significant psychiatric history for drug-induced psychosis, depression, anxiety, over 10 hospitalizations, multiple suicidal attempts, he is not a psychotropics, cocaine and opiates use disorder, medical history of Crohn's disease, who presents to the emergency department from local detox program/sober house where he was identified to have intentionally ingested bleach as a suicide attempt. Patient states yesterday for the first time reportedly used crack cocaine around 2 PM. Patient has been depressed and isolated. Patient was moved here from [place] to participate in the detox program. Patient states he has not been participating as he is too depressed. Patient was on antidepressant medications when he lived in [place] before moving to the detox program. 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 Patient had no exacerbation of his Crohn's disease. Patient has chronic diarrhea but denies any mucoid or bloody stools. No nausea or vomiting except for after drinking 2 drinks of bleach she did vomit one time. No shortness of breath or chest pain. Patient states he still feels like he does not want to be here and is depressed. Patient is here voluntarily wanting to get psychiatric help. Patient is not a Sparks act. Patient was admitted in observation due to leukocytosis with tachycardia meets SIRS criteria no obvious source of infection most likely reflects tachycardia for cocaine use and possible stress and dehydration precipitating leukocytosis. However repeat labs WBC improved significantly. EKG normal sinus rhythm rate 67 left axis deviation no acute ST elevation or injury pattern change nonspecific ST-T changes some flattening noted V3 through V6. Consulted to psychiatry to address depression. EMR reviewed. Case discussed with Dr. Montaño directly. On psychiatric evaluation the patient is calm, cooperative. The patient reports that he has a long history of depression, he has been in a sober house for over 2 months, he has not been taking his medications, and he has been increasingly depressed. Yesterday, after multiple months, relapsed in cocaine and he felt so guilty that he decided to overdose with bleach. Patient reports that being far from his family, unemployed, facing his drug addiction day by day, making quite depressed. Patient reports that he has been feeling very guilty, irritable, with poor tolerance to frustration, hopeless, helpless, with increased sense of rejection, emptiness, persistent suicidal thoughts. The patient reports suicidal ideation, no specific plan at the moment. Is willing to be admitted in psychiatry and restarting his medications. He says that in the past he has being in Seroquel and Klonopin and other medications. Patient is oriented 3, no fluctuation of consciousness, no attention deficit gross cognitive impairment present. He is logical, coherent and relevant. No paranoia, no ideas of reference, no loosening of associations, no delusions are present. He is not agitated or aggressive. He reports that the reason he is in a sober house for treatment of opiate abuse, he has been in early sustained remission for about 2 months now, he used cocaine in the past, has been also sober until yesterday. 03/08/2018 patient was seen today for psychiatric evaluation. The patient was found in his bed, he is calm, cooperative. The patient reports that he feels much better today. He states that yesterday he was feeling depressed, he wanted to be in a safe environment, but he lied about his overdose. Patient reports that he did not take bleach to kill himself. "I was just feeling very guilty from a relapse, I wanted to punish myself, but I did not do it". Patient reports that he is in a better mood today. He is requesting to be discharge to go back to his sober house. He denies suicidal enemas ideation, he denies visual and auditory hallucinations. I explained to the patient that in order to release the Sparks will need to contact his sober house, he needs to have a full psychosocial assessment and we need to coordinate safe discharge which cannot be done today. He okay to stay in the hospital involuntary basis. Review of Systems Constitutional: DENIES: Diaphoretic episodes, Fatigue, Fever, Weight gain, Weight loss, Chills, Dizziness, Change in appetite, Night Sweats Endocrine: DENIES: Heat/cold intolerance, Polydipsia, Polyuria, Polyphagia Eyes: DENIES: Blurred vision, Diplopia, Eye inflammation, Eye pain, Vision loss , Photosensitivity, Double Vision Ears, nose, mouth, throat: DENIES: Tinnitus, Hearing loss, Vertigo, Nasal discharge, Oral lesions, Throat pain, Hoarseness, Ear Pain, Running Nose, Epistaxis, Sinus Pain, Toothache, Odynophagia Respiratory: DENIES: Apneas, Cough, Snoring, Wheezing, Hemoptysis, Sputum production, Shortness of breath Cardiovascular: DENIES: Chest pain, Palpitations, Syncope, Dyspnea on Exertion , PND, Lower Extremity Edema, Orthopnea, Claudication Gastrointestinal: DENIES: Abdominal pain, Black stools, Bloody stools, Constipation, Diarrhea, Nausea, Vomiting, Difficulty Swallowing, Anorexia Genitourinary: DENIES: Sexual dysfunction, Urinary frequency, Urinary incontinence, Urgency, Hematuria, Dysuria, Nocturia, Penile Discharge, Testicular Pain, Testicular Swelling Musculoskeletal: DENIES: Joint pain, Muscle aches, Stiffness, Joint Swelling, Back pain, Neck pain Integumentary: DENIES: Abnormal pigmentation, Nail changes, Pruritus, Rash Hematologic/lymphatic: DENIES: Bruising, Lymphadenopathy Immunologic/allergic: DENIES: Eczema, Urticaria Neurologic: DENIES: Abnormal gait, Headache, Localized weakness, Paresthesias, Seizures, Speech Problems, Tremor, Poor Balance Psychiatric: DENIES: Anxiety, Confusion, Mood changes, Depression, Hallucinations, Agitation, Suicidal Ideation, Homicidal Ideation, Delusions Substance Abuse History Drugs/Alcohol past 12 months Cocaine use disorder, he lives in a sober house for use of opioids, has being 2 months sober Past Family Social History Coded Allergies: No Known Allergies (Unverified , 03/05/18) Reported Medications Clonazepam (Klonopin) 0.5 Mg Tab, PO TID, #90 TAB 0 Refills 03/05/18 Paroxetine (Paxil) 10 Mg Tab, PO DAILY, #30 TAB 0 Refills 03/05/18 Current Medications Medications (Trade) Dose Ordered Sig/Nithin Route Start Time Stop Time Status Last Admin (Ativan) 1 mg Q6H PRN PO 03/06/18 17:00 Future Hold (Ativan Inj) 1 mg Q6H PRN IM 03/06/18 17:00 Future Hold (Tylenol) 650 mg Q4H PRN PO 03/06/18 17:00 (Milk Of Magnesia Liq) 30 ml DAILY PRN PO 03/06/18 17:00 (Mag-Al Plus Susp Liq) 30 ml Q6H PRN PO 03/06/18 17:00 (Habitrol 21 Mg Patch.24 Hr) 1 patch DAILY T-DERMAL 5/25/18 17:00 (Wellbutrin) 75 mg Q12HR PO 03/06/18 21:00 Future Hold Miscellaneous Information 1 DAILY T-DERMAL 03/07/18 09:00 Family Psych History No family psychiatric history Social History Patient was born and raised in [place], he lives in [place] with his family, is now participating in treatment for opiates and cocaine abuse in a sober house in the [place], unemployed, father of 2 kids, his highest level of education is college Patient's Strengths (min. 2) Patient lives in a structured environments Physical Exam Vital Signs Vital Signs Date Time Temp Pulse Resp B/P (MAP) Pulse Ox O2 Delivery O2 Flow Rate FiO2 03/08/18 06:40 97.8 82 18 90/56 (67) 100 Mental Status Examination Appearance: Appropriate Consciousness: Alert Motor Activity: Normal gait Speech: Unremarkable Language: Adequate Fund of Knowledge: Adequate Memory: Unremarkable Mood: Appropriate Affect: Appropriate Thought Process & Associations: Intact Thought Content: Appropriate Hallucination Type: None Delusion Type: None Suicidal Ideation: No Suicidal Plan: No Suicidal Intention: No Homicidal Ideation: No Homicidal Plan: No Homicidal Intention: No Insight: Fair Judgment: Impulsive Assessment & Plan Problem List: (1) Adjustment disorder with depressed mood ICD Codes: F43.21 - Adjustment disorder with depressed mood Assessment & Plan: On psychiatric evaluation today, different than yesterday, the patient reports that he did not take bleach to commit suicide, he actually did not take any bleach, and he came to the hospital with the complaint because he was feeling guilty and he wanted to be in a structured environment to be safe. He reports that now he feels better, he is requesting to be discharged back to the sober house to continue his rehab program. He denies suicidal enemas ideation, he denies visual and auditory hallucinations. There is no collateral information, psychosocial assessment has not been completed, and for this reason I will keep the patient under observation of mood and behavior until a safe discharge planning can be coordinated. No medications recommended. CIWA in place. Patient will sign voluntary admission. passementerie worker intervention to coordinate safe discharge plan. Assessment & Plan Estimated LOS: Wili Adrian MD March 08, 2018 13:49
[2018-03-08 15:23] VITALS: BP 119/71; PULSE 86; RESP 18; TEMP 98.1; O2SAT 100
[2018-03-09 06:20] VITALS: BP 93/55; PULSE 68; RESP 18; TEMP 97.5; O2SAT 96
--- NOTE | 2018-03-09 12:26 | HHI.DS ---
Psychiatry Discharge Summary Inpatient Psychiatric care?: Yes Advance Directive: No Reason Not Provided: Due to Patient Condition Mental Health AdvanceDirective: No Health Care Proxy: No Admission Admission Date March 06, 2018 at 16:38 Admission Diagnosis: (1) Adjustment disorder with depressed mood ICD Code: F43.21 - Adjustment disorder with depressed mood Brief History 03/07/2018 The patient is 33-year-old man, domiciled in a sober house in [facility], he is originally from [place], he is , unemployed, father of 2 kids, with a significant psychiatric history for drug-induced psychosis, depression, anxiety, over 10 hospitalizations, multiple suicidal attempts, he is not a psychotropics, cocaine and opiates use disorder, medical history of Crohn's disease, who presents to the emergency department from local detox program/sober house where he was identified to have intentionally ingested bleach as a suicide attempt. Patient states yesterday for the first time reportedly used crack cocaine around 2 PM. Patient has been depressed and isolated. Patient was moved here from [place] to participate in the detox program. Patient states he has not been participating as he is too depressed. Patient was on antidepressant medications when he lived in [place] before moving to the detox program. 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 Patient had no exacerbation of his Crohn's disease. Patient has chronic diarrhea but denies any mucoid or bloody stools. No nausea or vomiting except for after drinking 2 drinks of bleach she did vomit one time. No shortness of breath or chest pain. Patient states he still feels like he does not want to be here and is depressed. Patient is here voluntarily wanting to get psychiatric help. Patient is not a Sparks act. Patient was admitted in observation due to leukocytosis with tachycardia meets SIRS criteria no obvious source of infection most likely reflects tachycardia for cocaine use and possible stress and dehydration precipitating leukocytosis. However repeat labs WBC improved significantly. EKG normal sinus rhythm rate 67 left axis deviation no acute ST elevation or injury pattern change nonspecific ST-T changes some flattening noted V3 through V6. Consulted to psychiatry to address depression. EMR reviewed. Case discussed with Dr. Montaño directly. On psychiatric evaluation the patient is calm, cooperative. The patient reports that he has a long history of depression, he has been in a sober house for over 2 months, he has not been taking his medications, and he has been increasingly depressed. Yesterday, after multiple months, relapsed in cocaine and he felt so guilty that he decided to overdose with bleach. Patient reports that being far from his family, unemployed, facing his drug addiction day by day, making quite depressed. Patient reports that he has been feeling very guilty, irritable, with poor tolerance to frustration, hopeless, helpless, with increased sense of rejection, emptiness, persistent suicidal thoughts. The patient reports suicidal ideation, no specific plan at the moment. Is willing to be admitted in psychiatry and restarting his medications. He says that in the past he has being in Seroquel and Klonopin and other medications. Patient is oriented 3, no fluctuation of consciousness, no attention deficit gross cognitive impairment present. He is logical, coherent and relevant. No paranoia, no ideas of reference, no loosening of associations, no delusions are present. He is not agitated or aggressive. He reports that the reason he is in a sober house for treatment of opiate abuse, he has been in early sustained remission for about 2 months now, he used cocaine in the past, has been also sober until yesterday. 03/08/2018 patient was seen today for psychiatric evaluation. The patient was found in his bed, he is calm, cooperative. The patient reports that he feels much better today. He states that yesterday he was feeling depressed, he wanted to be in a safe environment, but he lied about his overdose. Patient reports that he did not take bleach to kill himself. "I was just feeling very guilty from a relapse, I wanted to punish myself, but I did not do it". Patient reports that he is in a better mood today. He is requesting to be discharge to go back to his sober house. He denies suicidal enemas ideation, he denies visual and auditory hallucinations. I explained to the patient that in order to release the Sparks will need to contact his sober house, he needs to have a full psychosocial assessment and we need to coordinate safe discharge which cannot be done today. He okay to stay in the hospital involuntary basis. Tobacco Use In Past 30 Days: 5 or More Cigarettes/Day Alcohol Use: Never Hospital Course The patient is 33-year-old man, domiciled in a sober house in [facility], he is originally from [place], he is , unemployed, father of 2 kids , with a significant psychiatric history for drug-induced psychosis, depression , anxiety, over 10 hospitalizations, multiple suicidal attempts, he is not a psychotropics, cocaine and opiates use disorder, medical history of Crohn's disease, who presents to the emergency department [facility] he was identified to have intentionally ingested bleach as a suicide attempt which he was admitted to the inpatient psychiatry unit for further evaluation and management. Patient during evaluations has stated that he had lied about his overdose with ingestion with bleach as he reports having relapsed from crack cocaine knew he would be kicked out of his sober living facility and therefore endorsed this to come into the hospital. Patient was admitted to a locked, inpatient psychiatric unit. Patient was seen and examined on the unit by psychiatry. Psychotropic medications were not started as patient had stated having lied intentionally about his suicide attempt as stated above. There was no evidence of any suicidality or homicidality on the inpatient unit. Patient's behavior had been noted to be calm, cooperative, stable mood and requesting to be discharged to return back to his sober living facility. He agrees with outpatient follow up to continue mental health treatment. Counselor has contacted the sober living facility who had agreed to take patient back and made transportation and follow-up arrangements for continuity of care. On the day of discharge: Patient seen and examined with nurse and counselor. Chart reviewed. Case discussed with nurse and counselor. No behavioral issues overnight. On my examination today, the patient is agreeable to outpatient follow up and will return back to the sober living facility. He denies any suicidal or homicidal ideation, intent or plan on direct questioning and contracts for safety. I can elicit no mood symptoms; denies any audiovisual hallucinations. No delusional material verbalized today. No physical complaints. Suicide and violence risk assessment on day of discharge both suggest lower imminent risk, and the patient's level of function is adequate for planned level of outpatient care. Patient has maximized benefit from this inpatient psychiatric hospital stay and will be discharged to sober living facility today with follow-up as arranged by counselor. Patient advised to return to psychiatric emergency room for any concerning psychiatric symptoms. Patient agrees with plan. Results Blood Pressure 93 / 55 Vital Signs Date Time Temp Pulse Resp B/P (MAP) Pulse Ox O2 Delivery O2 Flow Rate FiO2 03/09/18 06:20 97.5 68 18 93/55 (25) 96 WNL Summary of Procedures None Pending results at discharge: No Medications # of Antipsychotic meds at D/C: 0 Approp Antipsych med options 1 - Minimum of three failed multiple trials of monotherapy. 2 - Documented plan to taper to monotherapy due to previous use of multiple meds OR cross-taper in progress at D/C. 3 - Documentation of augmentation of Clozapine. 4 - Justification other than those listed in allowable values 1-3, document here : Discharge Discharge Date: March 09, 2018 Discharge Diagnosis: (1) Adjustment disorder with depressed mood ICD Code: F43.21 - Adjustment disorder with depressed mood Pt Condition on Discharge: Stable Discharge Disposition: [facility] Discharge Instructions Diet Instructions: As Tolerated, No Restrictions Activities you can perform: Regular-No Restrictions Scheduled Appointment: Hermes Carbone Appointment Date: March 11, 2018 Appointment Time: 730am Discharge Time > 30 minutes Mental Status Examination Appearance: Appropriate Consciousness: Alert Motor Activity: Normal gait Speech: Unremarkable Language: Adequate Fund of Knowledge: Adequate Memory: Unremarkable Mood: Appropriate Affect: Appropriate Thought Process & Associations: Intact Thought Content: Appropriate Hallucination Type: None Delusion Type: None Suicidal Ideation: No Suicidal Plan: No Suicidal Intention: No Homicidal Ideation: No Homicidal Plan: No Homicidal Intention: No Insight: Fair Judgment: Impulsive Discharge/Advance Care Plan Health Problems: (1) Adjustment disorder with depressed mood Goals to promote your health * To prevent worsening of your condition and complications * To maintain your health at the optimal level Directions to meet your goals Take your medications as prescribed Follow your dietary instruction Follow activity as directed Keep your appointments as scheduled Take your immunizations and boosters as scheduled If your symptoms worsen call your PCP, if no PCP go to Urgent Care Center or Emergency Room For 05/05 questions related to your inpatient stay or results of tests pending at discharge, please contact Dr. Mario Alberto Ferreira at Smoking is Dangerous to Your Health. Avoid second hand smoking Mario Alberto Ferreira MD March 09, 2018 12:26
== END 2018-03-09 13:00 | DRG 881 ==
LOC: H270 16:38
PROVIDERS: ADMIT Student in an Organized Health Care Education/Training Program; ATTEND Student in an Organized Health Care Education/Training Program
DX: F43.21 Adjustment disorder with depressed mood (principal); K50.90 Crohn's disease, unspecified, without complications; R45.851 Suicidal ideations; R00.0 Tachycardia, unspecified; D72.829 Elevated white blood cell count, unspecified; F14.10 Cocaine abuse, uncomplicated; F17.210 Nicotine dependence, cigarettes, uncomplicated; Z53.20 Procedure and treatment not carried out because of patient's decision for unspecified reasons; Z91.5 Personal history of self-harm